=== PATIENT | female | born 1980 | race Caucasian/White ===

== ENCOUNTER 2018-11-06 22:24 | Emergency (ER) | payer MEDICAID, OTHER ==
[~2018-11-06] VITALS: Ht 167.6 cm; Wt 136.1 kg
[~2018-11-06 22:24] MED LIST: DOXY-13 PO; PRM25T PO
--- OUTSIDE RECORDS SUMMARY | 2018-11-06 22:30 | XMS REPORT | Continuity of Care Document ---
Demographics Preferred Language Unknown Marital Status Unknown Yazdanism Affiliation Unknown Race Unknown Ethnic Group Unknown Author Author [facility] Address Unknown Phone Unavailable Allergies There is no data. Medications There is no data. Problems Date Dx Coded Attending Type Code Diagnosis Diagnosed By 01/30/2009 278.00 OBESITY EXOGENOUS 01/30/2009 V25.49 Gynecologic Service Prescrip Of Contracept Agent - Repeat Rx 01/30/2009 V72.31 Pelvic Exam ( Internal) 02/20/2009 783.1 recent weight gain while trying to diet 03/02/2012 625.9 PELVIC PAIN 03/02/2012 626.4 IRREGULAR MENSTRUAL CYCLE 03/02/2012 V25.42 CONTRACEPTION SURVEILLANCE (IUD) 03/02/2012 V76.2 CERVICAL CANCER SCREENING (PAP SMEAR) 08/22/2012 V25.12 IUD REMOVAL Procedures Code [place] [id number] IUD REMOVAL 08/22/2012 Results There is no data. Encounters ACCT No. Visit Date/Time Discharge Status Pt. Type Provider Facility Loc./Unit Complaint [id number] 08/22/2012 09:50:00 08/22/2012 23:59:59 CLS Outpatient
[2018-11-06] MEDS ORDERED: NS IV 1000 ML 1,000 ML IV STA (22:51)
--- NOTE | 2018-11-06 22:57 | ED GI ---
General Chief Complaint: Abdominal/GI Problems Stated Complaint: NAUSEA/VOMITTING Nursing Triage Note: Pt arrived by private vehicle for chief complaint of nausea/vomiting. Pt stated she has had a cough for a week, and vomiting for 1-2 hours. Pt has felt bad all day she stated. Pt stated she tok 1.5 dose daytime cough and cold. Her head hurts constantly and chest 7/10 when coughing/taking a deep breath. Sepsis Screen: Possible Sepsis Risk Source of Information: Patient Exam Limitations: No Limitations History of Present Illness Date Seen by Provider: Nov 06, 2018 Time Seen by Provider: 22:48 Initial Comments 38-year-old female with approximately 3 hours of nausea vomiting and diarrhea. States that she has become lightheaded and sees spots before her eyes. She's not had any syncope or significant lightheadedness. She has had some epigastric pain with vomiting. No shortness of breath. Denies other medical problems. Is not aware of any likely precipitating ingestion prior to the onset of her current symptoms. No blood in either the stool or emesis. Allergies and Home Medications Allergies Coded Allergies: No Known Drug Allergies (Unverified Allergy, Mild, 10/30/09) Home Medications Doxycycline Hyclate 100 Mg Capsule, 1 EACH PO Q12HR Prescribed by: LESTER GARCIA on 12/04/11 09 Promethazine Hcl 25 Mg Tablet, 1 TAB PO QID Prescribed by: CHRISTINA AGUILERA DO on 10/30/091952 Patient Home Medication List Home Medication List Reviewed: Yes Review of Systems Review of Systems Constitutional: malaise, weakness EENTM: Nose Congestion Respiratory: No Symptoms Reported Cardiovascular: No Symptoms Reported Gastrointestinal: See HPI Genitourinary: No Symptoms Reported Musculoskeletal: no symptoms reported Skin: no symptoms reported Psychiatric/Neurological: No Symptoms Reported Endocrine: No Symptoms Reported Hematologic/Lymphatic: No Symptoms Reported Past [id number]-[id number] Hx Past Med/Social Hx: Reviewed Nursing Past Med/Soc Hx Patient Social History Alcohol Use: Denies Use Recreational Drug Use: No Smoking Status: Light Tobacco Smoker Type Used: Cigarettes 2nd Hand Smoke Exposure: No Recent Foreign Travel: No Contact w/Someone Who Travel: No Recent Infectious Disease Expo: No Recent Hopitalizations: No Physical Abuse: No Sexual Abuse: No Mistreated: No Fear: No Immunizations Up To Date Date of Influenza Vaccine: May 09, 2011 Seasonal Allergies Seasonal Allergies: No Past Medical History Surgeries: No Respiratory: No Cardiac: No Neurological: No Last Menstrual Period: Nov 03, 2018 Genitourinary: No Gastrointestinal: No Musculoskeletal: No Endocrine: No HEENT: No Cancer: No Psychosocial: No Integumentary: No Blood Disorders: No Physical Exam Vital Signs Vital Signs - First Documented 11/06/18 22:43 Temp 100.2 Pulse 107 Resp 20 B/P (MAP) 132/106 (115) Pulse Ox 94 O2 Delivery Room Air Capillary Refill : Less Than 3 Seconds Height/Weight/BMI Height: 5'6.00" Weight: 300lbs. oz. 136.997259le; BMI Method:Estimated General Appearance: WD/WN, no apparent distress, obese HEENT: PERRL/EOMI, normal ENT inspection, TMs normal, pharynx normal; No scleral icterus (R), No scleral icterus (L) Neck: non-tender, full range of motion, supple, normal inspection Respiratory: chest non-tender, lungs clear, normal breath sounds, no respiratory distress, no accessory muscle use Cardiovascular: regular rate, rhythm, no gallop, no murmur Gastrointestinal: normal bowel sounds, soft; No guarding, No rebound; tenderness (mild, diffuse) Extremities: normal range of motion, non-tender, normal inspection, no pedal edema, no calf tenderness Back: normal inspection, no CVA tenderness, no vertebral tenderness Neurologic/Psychiatric: alert, oriented x 3 Skin: normal color, warm/dry Lymphatic: no adenopathy Progress/Results/Core Measures Results/Orders Lab Results Laboratory Tests Test 11/06/18 00:16 11/06/18 23:30 Range/Units Urine Color YELLOW Urine Clarity SLT CLOUDY Urine pH 6.0 5-9 Urine Specific [place] 1.025 H 1.016-1.022 Urine Protein NEGATIVE NEGATIVE Urine Glucose (UA) NEGATIVE NEGATIVE Urine Ketones TRACE H NEGATIVE Urine Nitrite NEGATIVE NEGATIVE Urine Bilirubin NEGATIVE NEGATIVE Urine Urobilinogen 1.0 NORMAL MG/DL Urine Leukocyte Esterase NEGATIVE NEGATIVE Urine RBC (Auto) NEGATIVE NEGATIVE Urine RBC NONE /HPF Urine WBC 2-5 /HPF Urine Squamous Epithelial Cells 10-25 H /HPF Urine Crystals NONE /LPF Urine Bacteria 3+ /HPF Urine Casts NONE /LPF Urine Mucus LARGE H /LPF Urine Culture Indicated NO White Blood Count 8.9 4.3-11.0 10^3/uL Red Blood Count 4.71 4.35-5.85 10^6/uL Hemoglobin 14.4 11.5-16.0 G/DL Hematocrit 42 35-52 % Mean Corpuscular Volume 89 80-99 FL Mean Corpuscular Hemoglobin 31 25-34 PG Mean Corpuscular Hemoglobin Concent 34 32-36 G/DL Red Cell Distribution Width 12.3 10.0-14.5 % Platelet Count 274 130-400 10^3/uL Mean Platelet Volume 10.0 7.4-10.4 FL Neutrophils (%) (Auto) 85 H 42-75 % Lymphocytes (%) (Auto) 8 L 12-44 % Monocytes (%) (Auto) 5 0-12 % Eosinophils (%) (Auto) 1 0-10 % Basophils (%) (Auto) 0 0-10 % Neutrophils # (Auto) 7.6 1.8-7.8 X 10^3 Lymphocytes # (Auto) 0.7 L 1.0-4.0 X 10^3 Monocytes # (Auto) 0.5 0.0-1.0 X 10^3 Eosinophils # (Auto) 0.1 0.0-0.3 10^3/uL Basophils # (Auto) 0.0 0.0-0.1 10^3/uL Neutrophils % (Manual) 80 % Lymphocytes % (Manual) 5 % Monocytes % (Manual) 7 % Eosinophils % (Manual) 2 % Basophils % (Manual) 0 % Band Neutrophils 6 % Sodium Level 139 135-145 MMOL/L Potassium Level 4.1 3.6-5.0 MMOL/L Chloride Level 102 98-107 MMOL/L Carbon Dioxide Level 23 21-32 MMOL/L Anion Gap 14 5-14 MMOL/L Blood Urea Nitrogen 11 7-18 MG/DL Creatinine 0.81 0.60-1.30 MG/DL Estimat Glomerular Filtration Rate > 60 BUN/Creatinine Ratio 14 Glucose Level 117 H 70-105 MG/DL Calcium Level 9.3 8.5-10.1 MG/DL Corrected Calcium 8.5-10.1 MG/DL Total Bilirubin 0.4 0.1-1.0 MG/DL Aspartate Amino Transf (AST/SGOT) 17 5-34 U/L Alanine Aminotransferase (ALT/SGPT) 21 0-55 U/L Alkaline Phosphatase 170 H 40-136 U/L Total Protein 7.6 6.4-8.2 GM/DL Albumin 4.6 H 3.2-4.5 GM/DL Lipase 10 8-78 U/L Serum Test, Qualitative NEGATIVE NEGATIVE My Orders Orders - JAZLYN MATIAS MD Ondansetron Injection (Zofran Injectio (11/06/18 23:00) Ns Iv 1000 Ml (Sodium Chloride 0.9%) (11/06/18 22:51) Saline Lock/Iv-Start (11/06/18 22:51) Comprehensive Metabolic Panel (11/06/18 22:51) Lipase (11/06/18 22:51) Ua Culture If Indicated (11/06/18 22:51) Acute Abd Series (11/06/18 22:51) Cbc With Automated Diff (11/06/18 22:51) Hcg,Qualitative Urine (11/06/18 22:53) Manual Differential (11/06/18 23:30) Hcg,Qualitative Serum (11/06/18 23:49) Ketorolac Injection (Toradol Injection) (11/07/18 00:22) Medications Given in ED Current Medications Medications Dose Ordered Sig/Jax Route Start Time Stop Time Status Last Admin Dose Admin Ondansetron HCl 4 mg ONCE ONCE IVP 11/06/18 23:00 11/06/18 23:01 DC 11/06/18 23:36 4 MG Vital Signs/I&O 11/06/18 22:43 Temp 100.2 Pulse 107 Resp 20 B/P (MAP) 132/106 (115) Pulse Ox 94 O2 Delivery Room Air Blood Pressure Mean: 115 Progress Progress Note : Time: 22:56 Progress Note With the recency of onset of symptoms, 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 We'll obtain routine lab studies. Discussed workup with patient who understands and agrees. 1225 Feeling better but has headache. Renal function good. Will give Toradol and continue IVF. Explained the expected clinical course. 1236 Headache improved. Reviewed lab results. Will treat nausea as outpatient and encourage adequate hydration. Pt agrees with plan. Diagnostic Imaging Diagonstic Imaging: Xray Plain Films/CT/US/NM/MRI: abdomen Comments AAS: Nonspecific bowel gas changes. JDO Departure Impression Primary Impression: Gastroenteritis Additional Impression: Dehydration Disposition: HOME, SELF-CARE Condition: Improved Departure-Patient Inst. Decision time for Depature: 00:38 Referrals: [facility] (PCP/Family) Primary Care Physician follow up in 2-3 days, sooner as needed Patient Instructions: Dehydration, Adult (DC) Add. Discharge Instructions: Ensure adequate hydration. All discharge instructions reviewed with patient and /or family. Voiced understanding. Scripts Ondansetron (Ondansetron Odt) 4 Mg Tab.rapdis 4 MG PO Q6H PRN for NAUSEA/VOMITING-1ST LINE, #10 TAB Prov: JAZLYN MATIAS MD 11/07/18 JAZLYN MATIAS MD Nov 06, 2018 22:57
[2018-11-06] MEDS ORDERED: ONDANSETRON 4 MG/2 ML (SDV) Z0FRAN IVP ONE (23:00)
[2018-11-06 23:40] LABS: HEMATOCRIT 42 % (35-52); HEMOGLOBIN 14.4 G/DL (11.5-16.0); MEAN CORPUSCULAR HEMOGLOBIN 31 PG (25-34); MEAN CORPUSCULAR HGB CONC 34 G/DL (32-36); MEAN CORPUSCULAR VOLUME 89 FL (80-99); PLATELET COUNT 274 10^3/uL (130-400); RED CELL DISTRIBUTION WIDTH 12.3 % (10.0-14.5); WHITE BLOOD COUNT 8.9 10^3/uL (4.3-11.0)
[2018-11-06 23:42] LABS: BASOPHILS % (AUTO) 0 % (0-10); EOSINOPHILS % (AUTO) 1 % (0-10); LYMPHOCYTES % (AUTO) 8 % (12-44); MONOCYTES % (AUTO) 5 % (0-12); NEUTROPHILS # (AUTO) 7.6 X 10^3 (1.8-7.8); NEUTROPHILS % (AUTO) 85 % (42-75)
[2018-11-06 23:43] LABS: EOSINOPHILS # (AUTO) 0.1 10^3/uL (0.0-0.3); LYMPHOCYTES # (AUTO) 0.7 X 10^3 (1.0-4.0); MONOCYTES # (AUTO) 0.5 X 10^3 (0.0-1.0)
[2018-11-07 00:01] LABS: CARBON DIOXIDE 23 MMOL/L (21-32); CHLORIDE 102 MMOL/L (98-107); POTASSIUM 4.1 MMOL/L (3.6-5.0); SODIUM 139 MMOL/L (135-145)
[2018-11-07 00:02] LABS: ALANINE AMINOTRANSFERASE 21 U/L (0-55); ALBUMIN 4.6 GM/DL (3.2-4.5); ALKALINE PHOSPHATASE 170 U/L (40-136); BILIRUBIN,TOTAL 0.4 MG/DL (0.1-1.0); BUN/CREATININE RATIO 14; CALCIUM 9.3 MG/DL (8.5-10.1); CREATININE SERUM 0.81 MG/DL (0.60-1.30); GFR ESTIMATED > 60; GLUCOSE 117 MG/DL (70-105); LIPASE 10 U/L (8-78); TOTAL PROTEIN 7.6 GM/DL (6.4-8.2)
[2018-11-07 00:06] LABS: BAND NEUTROPHILS 6 %; BASOPHILS % (MANUAL) 0 %; EOSINOPHILS % (MANUAL) 2 %; LYMPHOCYTES % (MANUAL) 5 %; MONOCYTES % (MANUAL) 7 %; NEUTROPHILS % (MANUAL) 80 %
[2018-11-07] MEDS ORDERED: KETOROLAC 30 MG/ML VIAL IVP STA (00:22)
[2018-11-07 00:28] LABS: BILIRUBIN,URINE NEGATIVE (NEGATIVE); CLARITY,URINE SLT CLOUDY; COLOR,URINE YELLOW; GLUCOSE, URINE (UA) NEGATIVE (NEGATIVE); KETONES,URINE TRACE (NEGATIVE); LEUKOCYTE ESTERASE ,URINE NEGATIVE (NEGATIVE); NITRITE,URINE NEGATIVE (NEGATIVE); PROTEIN,URINE NEGATIVE (NEGATIVE)
[2018-11-07 00:29] LABS: BACTERIA,URINE 3+ /HPF
[2018-11-07] MEDS ORDERED: ONDA4TAB11 PO (00:40)
[2018-11-07 01:05] VITALS: BP 121/62
--- NOTE | 2018-11-07 07:25 | Diagnostic Imaging Report ---
INDICATION: Nausea and vomiting FINDINGS: The lungs are clear. The heart and vessels normal. There is no effusion or pneumothorax. The bowel gas pattern is nonspecific. No substantial dilatation. No air-fluid levels. No pneumatosis. No free gas. There is a mildly elevated colonic fecal load and mild constipation could not be excluded. IMPRESSION: Negative chest. Borderline elevated colonic fecal load without obstruction or adrian impaction. Dictated by: Dictated on workstation # [id number]
== END 2018-11-07 01:05 | disposition home or self-care (01) ==
LOC: EDUNIT# 22:24 → ER FS 22:26
DX: K52.9 Noninfective gastroenteritis and colitis, unspecified (principal); E86.0 Dehydration
CPT/HCPCS: 36415; 74022; 80053; 81000; 83690; 84703; 85007; 85027; 96361; 96374; 96375